=== PATIENT | male | born 1995 | race Caucasian/White ===

== ENCOUNTER 2020-06-23 16:51 | Emergency (ER) | payer OTHER ==
[2020-06-23] MEDS ORDERED: Ondansetron 4 MG/2 ML SDV IVPUSH ONE (17:05)
--- NOTE | 2020-06-23 17:06 | EDM.PDOC ---
ED HPI GENERAL MEDICAL PROBLEM - General Chief Complaint: Gastrointestinal Problem Stated Complaint: NOT FEELING WELL Time Seen by Provider: 06/23/20 17:10 Source of Information: Reports: Patient History Limitations: Reports: No Limitations - History of Present Illness INITIAL COMMENTS - FREE TEXT/NARRATIVE: Ate a packaged lunch yesterday about noon and then developed diarrhea about 6 pm yesterday Today has had about 2-3 small BMs but had 3-4 episodes of vomiting this afternoon has not been able to keep anything down denies any fever or chills no other contacts with similar symptoms Onset: Today Onset Date: 06/22/20 Duration: Waxing/Waning Location: Reports: Abdomen Quality: Reports: Ache Improves with: Reports: None Worsens with: Reports: Eating Associated Symptoms: Reports: Loss of Appetite, Malaise, Nausea/Vomiting - Related Data Allergies Allergy/AdvReac Type Severity Reaction Status Date / Time No Known Allergies Allergy Verified 06/23/20 18:01 Home Meds: Home Meds Lactobacillus Acidophilus [Acidophilus Lactobacilli] 1 each PO DAILY #30 capsule 06/23/20 [Rx] Ondansetron [Ondansetron ODT] 4 mg PO Q6H PRN #30 tab.rapdis 06/23/20 [Rx] Simethicone 80 mg PO Q6H PRN #30 tab.chew 06/23/20 [Rx] ED ROS GENERAL - Review of Systems Review Of Systems: See Below Constitutional: Reports: Malaise, Weakness, Fatigue, Decreased Appetite HEENT: Reports: No Symptoms Respiratory: Reports: No Symptoms Cardiovascular: Reports: No Symptoms Endocrine: Reports: No Symptoms GI/Abdominal: Reports: Anorexia, Diarrhea, Decreased Appetite, Nausea, Vomiting. Denies: Abdominal Pain, Flatus, Hematemesis, Hematochezia, Melena, Stool Incontinence : Reports: No Symptoms Musculoskeletal: Reports: No Symptoms Skin: Reports: No Symptoms Neurological: Reports: No Symptoms Psychiatric: Reports: No Symptoms Hematologic/Lymphatic: Reports: No Symptoms ED EXAM, GI/ABD - Physical Exam Exam: See Below Exam Limited By: No Limitations General Appearance: Alert, WD/WN, No Apparent Distress Eyes: Bilateral: EOMI Ears: Normal External Exam Throat/Mouth: Normal Oropharynx Head: Atraumatic, Normocephalic Neck: Supple, Non-Tender Respiratory/Chest: Lungs Clear, Normal Breath Sounds Cardiovascular: Regular Rate, Rhythm GI/Abdominal Exam: Normal Bowel Sounds, Soft, Non-Tender. No: Distended, Tender Back Exam: Normal Inspection Extremities: Normal Range of Motion, No Pedal Edema Neurological: Alert, Oriented, CN II-XII Intact Psychiatric: Normal Affect, Normal Mood Skin Exam: Warm, Dry, Intact Lymphatic: No Adenopathy Course - Orders/Labs/Meds Orders: Active Orders 24 hr Category Date Time Status CBC WITH AUTO DIFF [HEME] Stat Lab 06/23/20 17:17 Results COMPREHENSIVE METABOLIC PN,CMP [CHEM] Stat Lab 06/23/20 17:17 Results CORONAVIRUS COVID-19 SHAHID [MOLEC] Stat Lab 06/23/20 17:05 Ordered Simethicone Med 06/23/20 17:33 Stat 160 mg PO NOW STA Sodium Chloride 0.9% [Normal Saline] 1,000 ml Med 06/23/20 17:15 Active IV ASDIRECTED Medication Orders Sodium Chloride (Normal Saline) 1,000 mls @ 999 mls/hr IV ASDIRECTED CARLOS Last Admin: 06/23/20 17:14 Dose: 999 mls/hr Documented by: CAMI Labs: Laboratory Tests 06/23/20 06/23/20 06/23/20 Range/Units 17:17 17:17 17:17 WBC 6.1 (3.2-10.1) x10-3/uL RBC 5.00 (3.90-5.90) x10(6)uL Hgb 15.5 (12.9-17.7) g/dL Hct 45.3 (38.3-50.1) % MCV 90.7 (80.8-98.7) fL MCH 31.0 (27.0-33.3) pg MCHC 34.2 (28.7-35.3) g/dL RDW 13.1 (12.4-15.0) % Plt Count 125 (117-477) x10(3)uL MPV 10.7 (6.7-11.0) fL Add Manual Diff Yes Sodium 142 (135-145) mmol/L Potassium 3.7 (3.5-5.3) mmol/L Chloride 100 (100-110) mmol/L Carbon Dioxide 29 (21-32) mmol/L BUN 10 (7-18) mg/dL Creatinine 1.1 (0.70-1.30) mg/dL Est Cr Clr Drug Dosing TNP Estimated GFR (MDRD) > 60 (>60) BUN/Creatinine Ratio 9.1 (9-20) Glucose 119 H (80-116) mg/dL Calcium 8.4 L (8.6-10.2) mg/dL C-Reactive Protein 1.8 H (0.5-0.9) mg/dL Meds: Medications Generic Name Dose Route Start Last Admin Trade Name Freq PRN Reason Stop Dose Admin Sodium Chloride 1,000 mls @ 999 mls/hr 06/23/20 17:15 06/23/20 17:14 Normal Saline IV 999 mls/hr ASDIRECTED CARLOS Administration Discontinued Medications Generic Name Dose Route Start Last Admin Trade Name Freq PRN Reason Stop Dose Admin Ondansetron HCl 4 mg 06/23/20 17:05 06/23/20 17:16 Ondansetron 4 Mg/2 Ml Sdv IVPUSH 06/23/20 17:06 4 mg ONETIME ONE Administration - Re-Assessments/Exams Free Text/Narrative Re-Assessment/Exam: 06/23/20 18:34 pt given Zofran and IVF has been feeling better since No longer nauseated , not vomiting no abdominal pain , no fever Departure - Departure Time of Disposition: 18:45 Disposition: Home, Self-Care 01 Condition: Good Clinical Impression: Gastroenteritis, Gastritis - Discharge Information *PRESCRIPTION DRUG MONITORING PROGRAM REVIEWED*: Not Applicable *COPY OF PRESCRIPTION DRUG MONITORING REPORT IN PATIENT LUIS ANTONIO: Not Applicable Instructions: Food Poisoning, [id number], Gastritis, Adult, [id number] Forms: ED Department Discharge Additional Instructions: 1) BRAT/ [place] diet for at least 2 days [place] , bananas, crackers , apple sauce etc 2) if diarrhea persists , you will need to have stool cultures done : ok to return to ER or be seen in clinic 3) Call with any concerns - My Orders Last 24 Hours: My Active Orders 06/23/20 17:05 CORONAVIRUS COVID-19 SHAHID [MOLEC] Stat 06/23/20 17:15 Sodium Chloride 0.9% [Normal Saline] 1,000 ml IV ASDIRECTED 06/23/20 17:17 CBC WITH AUTO DIFF [HEME] Stat COMPREHENSIVE METABOLIC PN,CMP [CHEM] Stat 04/10/21 17:33 Simethicone 160 mg PO NOW STA - Assessment/Plan Last 24 Hours: My Active Orders 06/23/20 17:05 CORONAVIRUS COVID-19 SHAHID [MOLEC] Stat 06/23/20 17:15 Sodium Chloride 0.9% [Normal Saline] 1,000 ml IV ASDIRECTED 06/23/20 17:17 CBC WITH AUTO DIFF [HEME] Stat COMPREHENSIVE METABOLIC PN,CMP [CHEM] Stat 06/23/20 17:33 Simethicone 160 mg PO NOW STA
[2020-06-23] MEDS ORDERED: Sodium Chloride 0.9% 1,000 ML IV SCH (17:15)
[2020-06-23] MEDS ORDERED: Simethicone 80 MG Tab.Chew PO STA (17:33)
[2020-06-23] MEDS ORDERED: metroNIDAZOLE 250 MG Tab PO ONE (18:35)
== END 2020-06-23 19:08 | disposition home or self-care (01) ==
LOC: FB.ED 16:51
DX: K52.9 Noninfective gastroenteritis and colitis, unspecified (principal); K29.70 Gastritis, unspecified, without bleeding; Z20.822 Contact with and (suspected) exposure to COVID-19
CPT/HCPCS: 36415; 80053; 85025; 86140; 87635; 96374; 99284; A9270; J2405; J7030; U0002